=== PATIENT | female | born 1980 | race African-American/Black ===

== ENCOUNTER 2017-01-19 14:18 | Emergency (ER) | payer MEDICARE, MEDICAID ==
[~2017-01-19 14:18] MED LIST: ALPRAZOLAM0.25 M3 PO; BENADRYL50 MG PO; CIPRO; CLINDAMYCIN HC150 M1 PO; DILANTIN; DILANTIN100 MG PO; DILANTIN30 MG; ELIMITE60 G2 TP; FLAGYL; HALDOL5 MG/TAB PO; HYDROXYZINE HCL50 MG PO; MEDROL4 MG/DOSE- PO; NAPROSYN250 MG PO; NORCO 5-325 TA1 EACH PO; NORCO 7.5/325 T1 TAB PO; OLANZAPINE5 M2 PO; PENICILLIN V P500 M1 PO; SULFAMETHOXAZO1 EAC5 PO; TOPAMAX50 M3; ULTRAM50 M1 PO; XANAX0.25 M1 PO; [UNRECOGNIZED DRUG - REMARK]
[2017-01-19] MEDS ORDERED: XANAX1 M1 PO (14:26)
[2017-01-19] MEDS ORDERED: TOPAMAX50 M3 PO (14:27)
[2017-01-19] MEDS ORDERED: REXULTI2 MG PO (14:27)
[2017-01-19] MEDS ORDERED: ABILIFY5 M1 PO (14:27)
[2017-01-19] MEDS ORDERED: PERIDEX118 ML SSP (15:20)
== END 2017-01-19 15:27 ==
LOC: EDMED 14:18
PROC: 0CC Mouth and Throat, Extirpation (ICD-10-PCS; principal; 2017-01-19)
DX: S00.551A Superficial foreign body of lip, initial encounter (principal); X58.XXXA Exposure to other specified factors, initial encounter; Z23 Encounter for immunization

== ENCOUNTER 2017-02-19 16:59 | Emergency (ER) | payer MEDICARE, MEDICAID ==
[~2017-02-19 16:59] MED LIST changes: +ABILIFY5 M1 PO; +PERIDEX118 ML SSP; +REXULTI2 MG PO; +TOPAMAX50 M3 PO; +XANAX1 M1 PO
[2017-02-19 17:26] LABS: URINE BILIRUBIN NEGATIVE (NEG); URINE BLOOD NEGATIVE (NEG); URINE GLUCOSE (UA) NEGATIVE (NEG); URINE KETONE NEGATIVE (NEG); URINE LEUKOCYTE ESTERASE POSITIVE (NEG); URINE NITRITE NEGATIVE (NEG); URINE PROTEIN NEGATIVE (NEG); URINE SPECIFIC GRAVITY 1.015 (1.003-1.030)
[2017-02-19 17:28] LABS: URINE APPEARANCE SLIGHTLY HAZY; URINE COLOR YELLOW
[2017-02-19 18:04] LABS: URINE EPITHELIAL CELLS 0-3 /[HPF] (0-10); URINE RBC 0 /[HPF] (0-5); URINE WBC 0-1 /[HPF] (0-5)
[2017-02-19] MEDS ORDERED: XANAX1 M1 PO (19:10)
[2017-02-19] MEDS ORDERED: TOPAMAX50 M3 PO (19:10)
[2017-02-19 19:32] LABS: ALBUMIN 3.5 g/dl (3.5-5.0); ALKALINE PHOSPHATASE 58 U/L (33-138); ALT/SGPT 26 U/L (12-78); ANION GAP 12 mmol/L (0-20); AST/SGOT 16 U/L (10-40); BILIRUBIN,TOTAL 0.2 mg/dl (0-1.5); BLOOD UREA NITROGEN 9 mg/dl (6-24); CALCIUM 8.6 mg/dl (8.5-10.5); CARBON DIOXIDE-VENOUS 26 mmol/L (22-32); CHLORIDE 109 mmol/l (96-110); GLUCOSE 79 mg/dL (70-110); POTASSIUM 4.4 mmol/L (3.7-5.1); SODIUM 143 mmol/L (135-145); eGFR VALUE FOR BLACK 84 mL/Min
[2017-02-19 19:40] LABS: BASO % 0.2 % (0-2); EOS % 0.8 % (0-7); EOSINOPHIL ABSOLUTE COUNT 0.1 tho/cmm (0.0-0.7); HCT-HEMATOCRIT 38.7 % (34.0-49.0); HGB-HEMOGLOBIN 13.3 gm/dl (12.0-15.5); IMMATURE GRANULOCYTES ABSOLUTE 0.01 tho/cmm (0-0.03); IMMATURE GRANULOCYTES PERCENT 0.2 % (0-0.3); LYMPH % 32.6 % (20-45); LYMPH ABSOLUTE COUNT 2.2 tho/cmm (0.8-4.5); MCH (MEAN CORPUSCULAR HGB) 31.6 pg (28.0-32.0); MCHC MEAN CORPUSCULAR HGB CONC 34.4 % (32.0-36.0); MCV (MEAN CELL VOLUME) 91.9 fl (82.0-96.0); MEAN PLATELET VOLUME 8.6 cmc (9.4-12.4); MONO % 6.2 % (0-12); MONOCYTE ABSOLUTE COUNT 0.4 tho/cmm (0.0-1.2); PLATELET COUNT 286 tho/cmm (150-450); RED BLOOD COUNT 4.21 mil/cmm (4.00-5.20); RED CELL DISTRIBUTION WIDTH 13.6 % (12.4-16.4); WHITE BLOOD COUNT 6.6 tho/cmm (4.0-10.0)
[2017-02-19 19:53] LABS: PREGNANCY-URINE NEGATIVE (NEGATIVE)
== END 2017-02-19 20:35 ==
LOC: EDMED 16:59
PROVIDERS: Emergency Medicine
DX: R44.2 Other hallucinations (principal); R42 Dizziness and giddiness; I10 Essential (primary) hypertension; F20.9 Schizophrenia, unspecified; F17.210 Nicotine dependence, cigarettes, uncomplicated; Z79.899 Other long term (current) drug therapy